=== PATIENT | female | born 2000 | race Two or more races ===

== ENCOUNTER 2024-06-04 13:30 | Outpatient (CLI) | payer OTHER | END 2024-06-04 13:40 | disposition home or self-care (01) | LOC: PPH VACUNA 13:30 | PROVIDERS: ATTEND Emergency Medicine Pediatric Emergency Medicine | DX: Z23 Encounter for immunization (principal) ==

== ENCOUNTER 2024-07-02 00:14 | Emergency (ER) | payer OTHER ==
[~2024-07-02] VITALS: Ht 157.5 cm; Wt 61.2 kg
[2024-07-02] MEDS ORDERED: GUAIFENESIN 200 MG/10 ML BLIST.PACK PO STA (02:59)
[2024-07-02] MEDS ORDERED: ACETAMINOPHEN 500 MG GEL..CAP PO STA (03:00)
[2024-07-02] MEDS ORDERED: DIPHENHYDRAMINE HCL 12.5 MG/5 ML BLIST.PACK PO STA (03:00)
[2024-07-02 04:04] LABS: HEMATOCRIT 36.3 % (36.0-45.00); MEAN CELL VOLUME 79.9 fL (80.00-100.00); MEAN CORPUSCULAR HEMOGLOBIN 26.5 pg (27.00-32.0); MEAN CORPUSCULAR HGB CONC 33.2 g/dl (32.0-36.0); PLATELET COUNT 207 K/uL (150-450); RED BLOOD COUNT 4.54 M/uL (4.00-6.00); RED CELL DISTRIBUTION WIDTH 15.1 % (11.5-14.5)
[2024-07-02] MEDS ORDERED: PHENAGIL TABLE1 EACH PO (05:28)
[2024-07-02] MEDS ORDERED: ZYNCOF 20-400120 ML PO (05:28)
== END 2024-07-02 05:51 ==
LOC: ER 00:16
PROVIDERS: General Practice
DX: J06.9 Acute upper respiratory infection, unspecified (principal); Z20.822 Contact with and (suspected) exposure to COVID-19

== ENCOUNTER 2024-08-15 20:10 | Emergency (ER) | payer OTHER ==
[~2024-08-15] VITALS: Ht 152.4 cm; Wt 49.0 kg
[~2024-08-15 20:10] MED LIST: PHENAGIL TABLE1 EACH PO; ZYNCOF 20-400120 ML PO
[2024-08-15 20:12] VITALS: BP 126/65; O2SAT 97
[2024-08-15] MEDS ORDERED: ELVITEG/COB/EMTRI/TENOFO DISOP 1 UDTAB TABLET PO STA (20:55)
[2024-08-15] MEDS ORDERED: ELVITEG/COB/EMTRI/TENOFO DISOP 1 UDTAB TABLET PO ONE (21:00)
== END 2024-08-15 21:09 | disposition home or self-care (01) ==
LOC: ER 20:13
DX: S61.231A Puncture wound without foreign body of left index finger without damage to nail, initial encounter (principal); W46.1XXA Contact with contaminated hypodermic needle, initial encounter; Y93.89 Activity, other specified; Y92.234 Operating room of hospital as the place of occurrence of the external cause; Y99.8 Other external cause status